=== PATIENT | female | born 1955 | race Caucasian/White ===

== ENCOUNTER → 2016-08-07 | Outpatient (CLI) | payer MEDICAID ==
[2016-08-07 17:55] LABS: Basophils # (A) 0.1 k/uL (0-0.2); Basophils % (A) 1 %; CH 28.3; Eosinophils # (A) 0.3 k/uL (0-0.7); Eosinophils % (A) 2 %; HCT 46.9 % (34.0-46.0); HDW 2.65; HGB 14.8 gm/dL (11.4-16.0); Luc # (Auto) 0.39; Luc % (Auto) 3; Lymphocytes # (A) 2.1 k/uL (1.0-4.8); Lymphocytes % (A) 15 %; MCH 28.1 pg (25.0-35.0); MCHC 31.6 g/dL (31.0-37.0); MCV 88.7 fL (80.0-100.0); Mean Platelet Volume 6.8; Monocytes # (A) 0.5 k/uL (0-1.0); Monocytes % (A) 4 %; Neutrophils # (A) 10.7 k/uL (1.3-7.7); Neutrophils % (A) 76 %; RBC 5.28 m/uL (3.80-5.40); RDW 14.1 % (11.5-15.5); WBC 14.1 k/uL (3.8-10.6); WBC (Perox) 13.44
== END | disposition home or self-care (01) ==
LOC: LABPAT 17:19
PROVIDERS: ATTEND Obstetrics & Gynecology
DX: Z01.812 Encounter for preprocedural laboratory examination (principal); Z01.810 Encounter for preprocedural cardiovascular examination
CPT/HCPCS: 85025; 93005

== ENCOUNTER 2016-08-21 09:26 | Day surgery (SDC) | payer MEDICAID ==
[2016-08-15 16:21] VITALS: BMI 40.3
--- NOTE | 2016-08-20 15:47 | P.HPOB ---
History of Present Illness H&P Date: 08/20/16 Chief Complaint: postmenopausal bleeding 61 year old G0 presents for D&C hysteroscopy due to postemenopausal bleeding and thickened endometrium on US. Review of Systems All systems: negative Constitutional: Denies chills, Denies fever Eyes: denies blurred vision, denies pain Ears, nose, mouth and throat: Denies headache, Denies sore throat Cardiovascular: Denies chest pain, Denies shortness of breath Respiratory: Denies cough Gastrointestinal: Denies abdominal pain, Denies diarrhea, Denies nausea, Denies vomiting Genitourinary: Denies dysuria, Denies hematuria Musculoskeletal: Denies myalgias Integumentary: Denies pruritus, Denies rash Neurological: Denies numbness, Denies weakness Psychiatric: Denies anxiety, Denies depression Endocrine: Denies fatigue, Denies weight change Past Medical History Past Medical History: GERD/Reflux, Hypertension, Osteoarthritis (OA) Additional Past Medical History / Comment(s): HIATAL HERNIA, PATIENT STATES HAD A RECENT UTI AND TREATED WITH MEDS, History of Any Multi-Drug Resistant Organisms: None Reported Past Surgical History: Tonsillectomy Additional Past Surgical History / Comment(s): LINDY CATARACT SURGERY, THYROID SURGERY , PARA THYROID , D&C X2 , NASAL SURGERY, EAR SURGERY -RIGHT AND LEFT Past Anesthesia/Blood Transfusion Reactions: Postoperative Nausea & Vomiting ( PONV) Past Psychological History: Anxiety Smoking Status: Former smoker Past Alcohol Use History: Rare Additional Past Alcohol Use History / Comment(s): STARTED SMOKING AT AGE 14 QUIT 2006 SMOKED 1PPD Past Drug Use History: None Reported - Past Family History Father Family Medical History: Cancer Medications and Allergies Home Medications Medication Instructions Recorded Confirmed Type ALPRAZolam [Xanax] 1 mg PO Q8HR 08/15/16 08/15/16 History Aspirin 81 mg PO DAILY 08/15/16 08/15/16 History Fexofenadine HCl [Ana Luisa Allergy] 180 mg PO DAILY 08/15/16 08/15/16 History Hydrocodone/Acetaminophen [Vicodin 1 tab PO HS 08/15/16 08/15/16 History Es 7.5-300 mg Tablet] Krill Oil 500 mg PO DAILY 08/15/16 08/15/16 History Losartan [Cozaar] 50 mg PO DAILY 08/15/16 08/15/16 History Montelukast Sodium [Singulair] 10 mg PO DAILY 08/15/16 08/15/16 History Multivitamins, Thera [Multivitamin 1 tab PO DAILY 08/15/16 08/15/16 History (formulary)] Naproxen Sodium [Aleve] 220 mg PO Q12HR 08/15/16 08/15/16 History Allergies Allergy/AdvReac Type Severity Reaction Status Date / Time cephalexin [From Keflex] Allergy Swelling-TO Verified 08/15/16 15:55 NGUE ciprofloxacin [From Cipro] Allergy Rash/Hives Verified 08/15/16 15:56 codeine AdvReac SEVERE Verified 08/15/16 15:56 CONSTIPATION Exam Osteopathic Statement: *. No significant issues noted on an osteopathic structural exam other than those noted in the History and Physical/Consult. HEart: RRR Lungs: CTAB Abdomen: soft, nontender Extremeties: neg sheyla's Assessment and Plan (1) Postmenopausal bleeding Status: Acute Plan: 1. D&C hysteroscopy
[~2016-08-21 09:26] MED LIST: DEXAMETHASONE SOD PHOSPHATE 10 MG/ML 1 ML VIAL IV ONE; HYDROmorphone 1 MG/ML 1 ML SYRINGE IVP PRN; MIDAZOLAM 2 MG/2 ML VIAL IV PRN; ONDANSETRON 4 MG/2 ML VIAL IVP ONE; Pre Op ABX Message 1 EACH MISC MISCELLANE ONE; SCOPOLAMINE 1.5MG/72HR PATCH TRANSDERM ONE
[2016-08-21] MEDS: LACTATED RINGERS 1,000 ML IV SCH ×2 (09:46→11:41)
[2016-08-21] MEDS ORDERED: LIDOCAINE 1% 20 ML VIAL (10MG/ML) FOR IV START SQ ONE (09:46)
[2016-08-21] MEDS ORDERED: PROPOFOL 10 MG/ML 20 ML VIAL IV ONE (10:23)
[2016-08-21] MEDS ORDERED: SUCCINYLCHOLINE CHLORIDE VIAL 200 MG/10 ML VIAL IV ONE (10:23)
[2016-08-21] MEDS ORDERED: MIDAZOLAM 2 MG/2 ML VIAL ONE (10:23)
[2016-08-21] MEDS ORDERED: fentaNYL (PF) 50 MCG/ML 2 ML AMP ONE (10:23)
[2016-08-21] MEDS ORDERED: LIDOCAINE 1% INJ 10MG/ML (20 ML MDV) ONE (10:23)
--- NOTE | 2016-08-21 10:46 | P.OP ---
Date of Procedure: 08/21/16 Preoperative Diagnosis: Postmenopausal bleeding Postoperative Diagnosis: Postmenopausal bleeding Procedure(s) Performed: D&C hysteroscopy Implants: Anesthesia: JAMIE Surgeon: Aydee Velazquez Estimated Blood Loss (ml): 2 IV fluids (ml): 400 Urine output (ml): 25 Pathology: other (Endometrial curettings) Condition: stable Disposition: PACU Indications for Procedure: Operative Findings: Several polyps in the endometrial cavity, both ostia seen. Description of Procedure: Patient is taken the operating room where general anesthesia was obtained without difficulty. She is prepped and draped in normal sterile fashion dorsal lithotomy position, legs placed in candycane stirrups. Bladder drained of all urine. Weighted speculum placed in the vagina the anterior lip the cervix was grasped with single-tooth tenaculum. Uterus was sounded to 8 cm. The cervix was dilated to #8 Hegar dilator to allow the hysteroscopy to pass. Hysteroscopy was performed, both ostia visualized and several polyps were noted. Sharp curet was gently used to obtain endometrial curettings and the polyp forceps are used to ensure all polyps had been removed. All instrument removed from the vagina. Patient to our procedure well, sponge and instrument counts were correct 2 and she was taken to recovery room in stable condition.
[2016-08-21 10:58] VITALS: TEMP 97.6
[2016-08-21 12:51] VITALS: BP 154/87; PULSE 80; RESP 20
== END 2016-08-21 13:05 | disposition home or self-care (01) ==
LOC: OR 09:26
PROVIDERS: ATTEND Obstetrics & Gynecology
DX: N84.0 Polyp of corpus uteri (principal); N85.01 Benign endometrial hyperplasia; N95.0 Postmenopausal bleeding; R93.8 Abnormal findings on diagnostic imaging of other specified body structures; K21.9 Gastro-esophageal reflux disease without esophagitis; I10 Essential (primary) hypertension; M19.90 Unspecified osteoarthritis, unspecified site; F41.9 Anxiety disorder, unspecified; J44.9 Chronic obstructive pulmonary disease, unspecified; Z87.891 Personal history of nicotine dependence; Z79.1 Long term (current) use of non-steroidal anti-inflammatories (NSAID); Z79.82 Long term (current) use of aspirin; Z79.899 Other long term (current) drug therapy; Z79.891 Long term (current) use of opiate analgesic; Z88.1 Allergy status to other antibiotic agents
CPT/HCPCS: 88305; 58558; J2250; J0330; J1100; J2405; J2001; J3010; J2704

== ENCOUNTER → 2016-10-19 | Outpatient (CLI) | payer MEDICAID ==
--- NOTE | 2016-10-22 10:57 | MM ---
Reason for exam: screening (asymptomatic). Last mammogram was performed 1 year and 2 months ago. History: Patient is postmenopausal and is nulliparous. Family history of breast cancer in aunt. Physical Findings: A clinical breast exam by your physician is recommended on an annual basis and results should be correlated with mammographic findings. MG Screening Mammo w CAD Bilateral CC and MLO view(s) were taken. Prior study comparison: August 31, 2015, mammogram. August 03, 2014, mammogram. The breast tissue is heterogeneously dense. This may lower the sensitivity of mammography. Finding: There are typically benign round calcifications in both breasts. There is a chronic nodularity in the right breast. Asymmetric breast tissue in the left upper aspect, stable. There is no discrete abnormality. ASSESSMENT: Benign, BI-RAD 2 RECOMMENDATION: Routine screening mammogram of both breasts in 1 year.
== END | disposition home or self-care (01) ==
LOC: RADMAMWWP 09:50
PROVIDERS: ATTEND Family Medicine
DX: Z12.31 Encounter for screening mammogram for malignant neoplasm of breast (principal)

== ENCOUNTER → 2017-10-25 | Outpatient (CLI) | payer MEDICARE ==
--- NOTE | 2017-10-30 10:54 | MM ---
Reason for exam: screening (asymptomatic). Last mammogram was performed 1 year ago. History: Patient is postmenopausal and is nulliparous. Family history of breast cancer in aunt. Physical Findings: A clinical breast exam by your physician is recommended on an annual basis and results should be correlated with mammographic findings. MG Screening Mammo W/o Cad Bilateral CC and MLO view(s) were taken. Technologist: Joelle Leahy RT (R)(M) Prior study comparison: October 19, 2016, bilateral MG screening mammo w CAD. August 31, 2015, mammogram. The breast tissue is heterogeneously dense. This may lower the sensitivity of mammography. Finding: There are typically benign round, regional, diffuse/scattered calcifications in both breasts. There is no discrete abnormality. ASSESSMENT: Benign, BI-RAD 2 RECOMMENDATION: Routine screening mammogram of both breasts in 1 year.
== END | disposition home or self-care (01) ==
LOC: RADMAMWWP 08:49
PROVIDERS: ATTEND Family Medicine
DX: Z12.31 Encounter for screening mammogram for malignant neoplasm of breast (principal)
CPT/HCPCS: 77067

== ENCOUNTER → 2018-12-22 | Outpatient (CLI) | payer MEDICARE ==
--- NOTE | 2018-12-22 19:56 | BD ---
EXAMINATION TYPE: Axial Bone Density DATE OF EXAM: 12/22/2018 COMPARISON: NONE CLINICAL HISTORY: 63-year-old female screening for osteoporosis Height: 61 IN Weight: 208 LBS FRAX RISK QUESTIONS: Secondary Osteoporosis: 3. Menopause before 45: YES AGE 33 RISK FACTORS HISTORY OF: Active: YES Diet low in dairy products/other sources of calcium: YES Postmenopausal woman: AGE 33 Hyperparathyroidism: YES MEDICATIONS: Additional Medications: LOSARTAN, MULTI VIT, KRILL OIL, B12, PROBIOTIC, ANNABELLE ASPIRIN EXAM MEASUREMENTS: Bone mineral densitometry was performed using the [employer] System. Bone mineral density as measured about the Lumbar spine is: ----- L1-L4(G/cm2): 1.201 T Score Values are as follows: ----- L2: 0.6 ----- L3: 0.4 ----- L4: -0.4 ----- L1-L4: 0.2 Bone mineral density BASELINE Bone mineral density about the R hip (g/cm2): 0.976 Bone mineral density about the L hip (g/cm2): 1.052 T Score values are as follows: -----R Neck: -0.4 -----L Neck: 0.1 -----R Total: 1.2 -----L Total: 1.3 Bone mineral density BASELINE IMPRESSION: Normal (Values between +1 and -1 indicate normal bone mass). Consider repeating this study in 5 year s or sooner if there is some new clinical indication. NOTE: T-SCORE=SD OF THE YOUNG ADULT MEAN.
--- NOTE | 2018-12-23 09:22 | MM ---
Reason for exam: screening (asymptomatic). Last mammogram was performed 1 year and 2 months ago. History: Patient is postmenopausal and is nulliparous. Family history of breast cancer in aunt. Physical Findings: A clinical breast exam by your physician is recommended on an annual basis and results should be correlated with mammographic findings. MG 3D Screening Mammo W/Cad Bilateral CC and MLO view(s) were taken. Prior study comparison: October 25, 2017, bilateral MG screening mammo w/o cad. October 19, 2016, bilateral MG screening mammo w CAD. The breast tissue is heterogeneously dense. This may lower the sensitivity of mammography. Benign appearing bilateral calcifications. No suspicious abnormality. No significant changes when compared with prior studies. ASSESSMENT: Benign, BI-RAD 2 RECOMMENDATION: Routine screening mammogram of both breasts in 1 year.
== END ==
LOC: RADMAMWWP 11:53
PROVIDERS: ATTEND Family Medicine
DX: Z12.31 Encounter for screening mammogram for malignant neoplasm of breast (principal); Z13.820 Encounter for screening for osteoporosis; Z78.0 Asymptomatic menopausal state
CPT/HCPCS: 77063; 77067; 77080

== ENCOUNTER 2019-04-16 09:53 | Day surgery (SDC) | payer MEDICARE ==
[2019-04-14 14:56] VITALS: BMI 34.4
--- NOTE | 2019-04-16 07:51 | P.GSHP ---
History of Present Illness H&P Date: 04/16/19 CHIEF COMPLAINT: GERD HISTORY OF PRESENT ILLNESS: The patient is a 63-year-old female who presents reports gastroesophageal reflux disease. Upper endoscopy was offered for further evaluation and management. PAST MEDICAL HISTORY: Please see list. PAST SURGICAL HISTORY: Please see list. MEDICATIONS: Please see list. ALLERGIES: Please see list. SOCIAL HISTORY: No illicit drug use FAMILY HISTORY: No reports of Crohn disease or ulcerative colitis. REVIEW OF ORGAN SYSTEMS: CONSTITUTIONAL: No reports of fevers or chills. GI: Denies any blood in stools or constipation. PHYSICAL EXAM: VITAL SIGNS: Stable GENERAL: Well-developed and pleasant in no acute distress. HEENT: No scleral icterus. Extraocular movements grossly intact. Moist buccal mucosa. NECK: Supple without lymphadenopathy. CHEST: Unlabored respirations. Equal bilateral excursions. CARDIOVASCULAR: Regular rate and rhythm. Distal 2+ pulses. ABDOMEN: Soft, nondistended. MUSCULOSKELETAL: No clubbing, cyanosis, or edema. ASSESSMENT: 1. Gastroesophageal reflux disease PLAN: 1. Recommend proceeding with an upper endoscopy Past Medical History Past Medical History: GERD/Reflux, Hypertension, Osteoarthritis (OA) Additional Past Medical History / Comment(s): HIATAL HERNIA, LOW HEMOGLOBIN, POSITIVE COLOGARD History of Any Multi-Drug Resistant Organisms: None Reported Past Surgical History: Joint Replacement, Tonsillectomy Additional Past Surgical History / Comment(s): LINDY CATARACT SURGERY, THYROID SURGERY , PARA THYROID SX , D&C X2 , NASAL SURGERY, BILAT EAR SURGERY , COLONOSCOPY, LT TKA Past Anesthesia/Blood Transfusion Reactions: Postoperative Nausea & Vomiting (PONV) Smoking Status: Former smoker - Past Family History Father Family Medical History: Cancer Medications and Allergies Home Medications Medication Instructions Recorded Confirmed Type Fexofenadine HCl [Ana Luisa Allergy] 180 mg PO DAILY 08/15/16 04/14/19 History Losartan [Cozaar] 50 mg PO DAILY 08/15/16 04/14/19 History Multivitamins, Thera [Multivitamin 1 tab PO DAILY 08/15/16 04/14/19 History (formulary)] Cyclobenzaprine [Flexeril] 10 mg PO BID 04/14/19 04/14/19 History L.acidoph,Paracasei, B.lactis 1 each PO DAILY 04/14/19 04/14/19 History [Probiotic] Allergies Allergy/AdvReac Type Severity Reaction Status Date / Time cephalexin [From Keflex] Allergy Swelling-TO Verified 04/14/19 14:46 NGUE ciprofloxacin [From Cipro] Allergy Rash/Hives Verified 04/14/19 14:46 codeine AdvReac SEVERE Verified 04/14/19 14:46 CONSTIPATION
[~2019-04-16 09:53] MED LIST changes: -DEXAMETHASONE SOD PHOSPHATE 10 MG/ML 1 ML VIAL IV ONE; -HYDROmorphone 1 MG/ML 1 ML SYRINGE IVP PRN; +LACTATED RINGERS 1,000 ML IV SCH; -MIDAZOLAM 2 MG/2 ML VIAL IV PRN; -ONDANSETRON 4 MG/2 ML VIAL IVP ONE; -Pre Op ABX Message 1 EACH MISC MISCELLANE ONE; -SCOPOLAMINE 1.5MG/72HR PATCH TRANSDERM ONE
[2019-04-16 10:59] VITALS: TEMP 98.7
[2019-04-16] MEDS ORDERED: LIDOCAINE 1% 20 ML VIAL (10MG/ML) FOR IV START INTRADERMA ONE (11:03)
[2019-04-16] MEDS ORDERED: LIDOCAINE 1% INJ 10MG/ML (20 ML MDV) ONE (11:22)
[2019-04-16] MEDS ORDERED: PROPOFOL 10 MG/ML 20 ML VIAL IV ONE (11:22)
--- NOTE | 2019-04-16 11:40 | P.OP ---
Date of Procedure: 04/16/19 Description of Procedure: PREOPERATIVE DIAGNOSIS: Gastroesophageal reflux disease. Morbid obesity. POSTOPERATIVE DIAGNOSIS: Morbid obesity. Gastritis. Gastroesophageal reflux disease. OPERATION: Esophagogastroduodenoscopy with biopsies along antrum. SURGEON: Radha Rand MD ANESTHESIA: MAC. INDICATIONS: The patient is a 63-year-old female who presents with a history of reflux disease. Benefits and risks of the procedure were described. Informed consent was obtained. DESCRIPTION: The patient was brought into the endoscopy suite and laid in the left lateral decubitus position. An Olympus gastroscope was passed along the posterior oropharynx down to the distal esophagus where the squamocolumnar junction was encountered at 35 cm from the incisors. The stomach was entered and no bile reflux was found. Additional findings are listed below. Biopsies with cold forceps were obtained of the antrum. The first through third portion of the duodenum was examined and unremarkable. Retroflexion of the scope confirmed Hill grade 2 lower esophageal valve. The squamocolumnar junction demonstrated LA grade A erosive esophagitis. The stomach was desufflated. The patient tolerated the procedure well. FINDINGS: Squamocolumnar junction 35 cm from the incisors. Diaphragmatic hiatus at 35 cm. Hill grade 2 lower esophageal valve. LA grade A erosive esophagitis. No active duodenitis. Chronic gastritis RECOMMENDATIONS: Upper endoscopy as needed. Plan - Discharge Summary Discharge Rx Participant: No New Discharge Prescriptions: No Action Multivitamins, Thera [Multivitamin (formulary)] 1 tab PO DAILY Losartan [Cozaar] 50 mg PO DAILY Fexofenadine HCl [Ana Luisa Allergy] 180 mg PO DAILY Cyclobenzaprine [Flexeril] 10 mg PO BID L.acidoph,Paracasei, B.lactis [Probiotic] 1 each PO DAILY Discharge Medication List Fexofenadine HCl [Ana Luisa Allergy] 180 mg PO DAILY 08/15/16 [History] Losartan [Cozaar] 50 mg PO DAILY 08/15/16 [History] Multivitamins, Thera [Multivitamin (formulary)] 1 tab PO DAILY 08/15/16 [History] Cyclobenzaprine [Flexeril] 10 mg PO BID 04/14/19 [History] L.acidoph,Paracasei, B.lactis [Probiotic] 1 each PO DAILY 04/14/19 [History] Follow up Appointment(s)/Referral(s): Radha Rand MD [STAFF PHYSICIAN] - 05/05/19 Patient Instructions/Handouts: Gastritis (DC) Activity/Diet/Wound Care/Special Instructions: May resume Aleve Discharge Disposition: HOME SELF-CARE
[2019-04-16 12:15] VITALS: BP 114/68; PULSE 86; RESP 16
== END 2019-04-16 12:43 | disposition home or self-care (01) ==
LOC: ORWHC2ENDO 09:53
PROVIDERS: ATTEND Surgery Plastic and Reconstructive Surgery
DX: K29.50 Unspecified chronic gastritis without bleeding (principal); B96.81 Helicobacter pylori [H. pylori] as the cause of diseases classified elsewhere; K21.0 Gastro-esophageal reflux disease with esophagitis; K22.10 Ulcer of esophagus without bleeding; D64.9 Anemia, unspecified; I10 Essential (primary) hypertension; E66.01 Morbid (severe) obesity due to excess calories; M19.90 Unspecified osteoarthritis, unspecified site; Z88.1 Allergy status to other antibiotic agents; Z88.5 Allergy status to narcotic agent; Z87.891 Personal history of nicotine dependence; Z79.899 Other long term (current) drug therapy; Z87.19 Personal history of other diseases of the digestive system; Z90.89 Acquired absence of other organs; Z98.41 Cataract extraction status, right eye; Z98.42 Cataract extraction status, left eye; Z96.652 Presence of left artificial knee joint; Z80.9 Family history of malignant neoplasm, unspecified; Z68.36 Body mass index [BMI] 36.0-36.9, adult
CPT/HCPCS: 88305; 88342; 43239; J2001; J2704

== ENCOUNTER 2019-04-26 18:22 | Emergency (ER) | payer MEDICARE ==
[2019-04-26 19:41] VITALS: RESP 20; TEMP 98.9
[2019-04-26] MEDS ORDERED: SODIUM CHLORIDE 0.9% 1,000 ML IV STA (19:45)
[2019-04-26] MEDS ORDERED: ONDANSETRON 4 MG/2 ML VIAL IVP STA ×2 (19:45→22:14)
[2019-04-26 20:38] LABS: Basophils % (A) 0 %; Eosinophils % (A) 0 %; HCT 35.9 % (34.0-46.0); HGB 10.6 gm/dL (11.4-16.0); Hypochromasia Marked; Lymphocytes % (A) 6 %; MCH 20.8 pg (25.0-35.0); MCHC 29.6 g/dL (31.0-37.0); MCV 70.3 fL (80.0-100.0); Microcytosis Moderate; Monocytes # (A) 0.5 k/uL (0-1.0); Monocytes % (A) 3 %; Neutrophils # (A) 14.9 k/uL (1.3-7.7); Neutrophils % (A) 89 %; Platelet Count 346 k/uL (150-450); Poikilocytosis Slight; RBC 5.11 m/uL (3.80-5.40); RDW 15.7 % (11.5-15.5); WBC 16.7 k/uL (3.8-10.6)
[2019-04-26 20:46] LABS: ALT 17 U/L (4-34); AST 25 U/L (14-36); African American GFR (CKD) >90 (>60 ml/min/1.73 sqM); Albumin 4.5 g/dL (3.5-5.0); Alkaline Phosphatase 92 U/L (38-126); Anion Gap 8 mmol/L; Blood Urea Nitrogen 17 mg/dL (7-17); Calcium 9.2 mg/dL (8.4-10.2); Carbon Dioxide 26 mmol/L (22-30); Chloride 105 mmol/L (98-107); Glucose 120 mg/dL (74-99); Non-African American GFR(CKD) >90 (>60 ml/min/1.73 sqM); Potassium 4.4 mmol/L (3.5-5.1); Sodium 139 mmol/L (137-145); Total Bilirubin 0.4 mg/dL (0.2-1.3); Total Protein 7.8 g/dL (6.3-8.2)
--- NOTE | 2019-04-26 20:54 | ED ---
Nausea/Vomiting/Diarrhea HPI <Bernadette Chiang Zara - Last Filed: 04/26/19 23:28> - General Source: patient Mode of arrival: ambulatory Limitations: no limitations <Sharri Reilly - Last Filed: 05/01/19 23:13> - General Chief complaint: Nausea/Vomiting/Diarrhea Stated complaint: Vomiting Time Seen by Provider: 04/26/19 19:14 - History of Present Illness Initial comments: The patient is a 63-year-old female with past history of hypertension and reflux who presents to the emergency department with reported nausea and epigastric abdominal pain. She states the pain started this morning. She had an EGD performed by Dr. Rand on the . She was called and instructed to start 3 new medications because of the results of the EGD for which she was not told. The patient started taking the medications on Saturday and states that they seemed upset her stomach. Today she felt a lot of pain in her abdomen which caused her to have an episode of nonbilious, nonbloody vomiting. States that she is unable to hold down any water all day. Denies any sick contacts or recent travel. No additional new medications. Denies eating any tainted foods. Also admits to a right upper quadrant abdominal pain for which she has had for several months. She has been worked up for it in her primary care office. They provider her a muscle relaxer. There is no associated chest pain or shortness of breath. She denies dysuria, hematuria or difficulty voiding. Denies any diarrhea, constipation, melanotic stools or hematochezia. There are no alleviating, precipitating or modifying factors (Sharri Reilly) - Related Data Home Medications Medication Instructions Recorded Confirmed Fexofenadine HCl [Ana Luisa Allergy] 180 mg PO DAILY 08/15/16 05/01/19 Losartan [Cozaar] 50 mg PO DAILY 08/15/16 05/01/19 L.acidoph,Paracasei, B.lactis 1 each PO DAILY 04/14/19 04/29/19 [Probiotic] Previous Rx's Medication Instructions Recorded Clarithromycin [Biaxin] 500 mg PO Q12HR #28 tablet 04/22/19 Omeprazole 40 mg PO DAILY #90 capsule. 04/22/19 metroNIDAZOLE [Flagyl] 500 mg PO BID #28 tab 04/22/19 Hydrocodone/Acetaminophen [[place] 1 tab PO Q6HR PRN #12 tab 04/26/19 5-325] Ondansetron Odt [Zofran ODT] 4 mg PO Q8HR PRN #10 tab 04/26/19 Acetaminophen Tab [Tylenol Tab] 1,000 mg PO Q6HR PRN #30 tablet 05/01/19 Ibuprofen [Motrin] 600 mg PO Q8HR PRN #30 tab 05/01/19 Allergies Allergy/AdvReac Type Severity Reaction Status Date / Time cephalexin [From Keflex] Allergy Swelling-TO Verified 05/01/19 12:32 NGUE ciprofloxacin [From Cipro] Allergy Rash/Hives Verified 05/01/19 12:32 codeine AdvReac SEVERE Verified 05/01/19 12:32 CONSTIPATION Review of Systems ROS Other: All systems not noted in ROS Statement are negative. <Bernadette Chiang - Last Filed: 04/26/19 23:28> ROS Other: All systems not noted in ROS Statement are negative. <Sharri Reilly - Last Filed: 05/01/19 23:13> ROS Statement: Those systems with pertinent positive or pertinent negative responses have been documented in the HPI. Past Medical History Past Medical History: GERD/Reflux, Hypertension, Osteoarthritis (OA) Additional Past Medical History / Comment(s): HIATAL HERNIA, LOW HEMOGLOBIN, POSITIVE COLOGARD History of Any Multi-Drug Resistant Organisms: None Reported Past Surgical History: Joint Replacement, Tonsillectomy Additional Past Surgical History / Comment(s): LINDY CATARACT SURGERY, THYROID SURGERY , PARA THYROID SX , D&C X2 , NASAL SURGERY, BILAT EAR SURGERY , COLONOSCOPY, LT TKA Past Anesthesia/Blood Transfusion Reactions: Postoperative Nausea & Vomiting (PONV) Past Psychological History: Anxiety Smoking Status: Former smoker Past Alcohol Use History: None Reported Past Drug Use History: Marijuana - Past Family History Father Family Medical History: Cancer <Sharri Reilly - Last Filed: 05/01/19 23:13> General Exam Limitations: no limitations General appearance: alert, in no apparent distress Head exam: Present: atraumatic, normocephalic, normal inspection Eye exam: Present: normal appearance, PERRL, EOMI. Absent: scleral icterus, conjunctival injection, periorbital swelling ENT exam: Present: normal exam, mucous membranes moist Neck exam: Present: normal inspection. Absent: tenderness, meningismus, lymphadenopathy Respiratory exam: Present: normal lung sounds bilaterally. Absent: respiratory distress, wheezes, rales, rhonchi, stridor Cardiovascular Exam: Present: regular rate, normal rhythm, normal heart sounds. Absent: systolic murmur, diastolic murmur, rubs, gallop, clicks GI/Abdominal exam: Present: soft, tenderness (RUQ), normal bowel sounds. Absent: distended, guarding, rebound, rigid Extremities exam: Present: normal inspection, full ROM, normal capillary refill. Absent: tenderness, pedal edema, joint swelling, calf tenderness Back exam: Present: normal inspection Neurological exam: Present: alert, oriented X3, CN II-XII intact Psychiatric exam: Present: normal affect, normal mood Skin exam: Present: warm, dry, intact, normal color. Absent: rash <Sharri Reilly - Last Filed: 05/01/19 23:13> Course Vital Signs 04/26/19 04/26/19 04/26/19 18:29 19:39 22:00 Temperature 99.0 F 98.9 F Pulse Rate 90 89 90 Respiratory 18 20 20 Rate Blood Pressure 155/81 137/90 155/90 O2 Sat by Pulse 98 97 97 Oximetry 04/27/19 00:05 Temperature Pulse Rate 94 Respiratory 20 Rate Blood Pressure 147/89 O2 Sat by Pulse 95 Oximetry Medical Decision Making - Lab Data Result diagrams: 04/26/19 20:17 04/26/19 20:17 <Bernadette Chiang - Last Filed: 04/26/19 23:28> - Lab Data Result diagrams: 04/26/19 20:17 04/26/19 20:17 <Sharri Reilly - Last Filed: 05/01/19 23:13> - Medical Decision Making Upon arrival the patient was placed into room 8. A thorough history and physical exam is performed. Peripheral IV was established. The patient was given a liter bolus of normal saline and 4 mg of Zofran. A complete laboratory studies. I did discuss completing imaging studies. The patient did agree to a collar ultrasound. Laboratory studies demonstrate a WBC of 16.7. Glucose is 120. Liver enzymes and alk phos are normal. A gallbladder ultrasound demonstrates multiple gallstones. I did reevaluate the patient she has had improvement in her symptoms. She is requesting a second dose of nausea medications. She has been given a cup of water and does hold it down. She'll be given a Zofran starter pack to go home. I also called additional prescription of Zofran in to the pharmacy. She is requesting something for the pain and therefore Ill provide her with a short course of [place] after she does sign an opiate start talking form. Currently awaiting urinalysis. The patient will be discharged home to follow-up with Dr. Rand. Return to the emergency room for any new worsening symptoms. Hold off on any medications provided to her by Dr. Rand's office until she is not vomiting. The patient remained in stable condition and was discharged home (Sharri Reilly) - Lab Data Lab Results 04/26/19 04/26/19 04/26/19 Range/Units 20:17 20:17 23:00 WBC 16.7 H (3.8-10.6) k/uL RBC 5.11 (3.80-5.40) m/uL Hgb 10.6 L (11.4-16.0) gm/dL Hct 35.9 (34.0-46.0) % MCV 70.3 L (80.0-100.0) fL MCH 20.8 L (25.0-35.0) pg MCHC 29.6 L (31.0-37.0) g/dL RDW 15.7 H (11.5-15.5) % Plt Count 346 (150-450) k/uL Neutrophils % 89 % Lymphocytes % 6 % Monocytes % 3 % Eosinophils % 0 % Basophils % 0 % Neutrophils # 14.9 H (1.3-7.7) k/uL Lymphocytes # 1.0 (1.0-4.8) k/uL Monocytes # 0.5 (0-1.0) k/uL Eosinophils # 0.0 (0-0.7) k/uL Basophils # 0.0 (0-0.2) k/uL Hypochromasia Marked Poikilocytosis Slight Microcytosis Moderate Sodium 139 (137-145) mmol/L Potassium 4.4 (3.5-5.1) mmol/L Chloride 105 (98-107) mmol/L Carbon Dioxide 26 (22-30) mmol/L Anion Gap 8 mmol/L BUN 17 (7-17) mg/dL Creatinine 0.55 (0.52-1.04) mg/dL Est GFR (CKD-EPI)AfAm >90 (>60 ml/min/1.73 sqM) Est GFR (CKD-EPI)NonAf >90 (>60 ml/min/1.73 sqM) Glucose 120 H (74-99) mg/dL Calcium 9.2 (8.4-10.2) mg/dL Total Bilirubin 0.4 (0.2-1.3) mg/dL AST 25 (14-36) U/L ALT 17 (4-34) U/L Alkaline Phosphatase 92 (38-126) U/L Total Protein 7.8 (6.3-8.2) g/dL Albumin 4.5 (3.5-5.0) g/dL Lipase 23 (23-300) U/L Urine Color Yellow Urine Appearance Clear (Clear) Urine pH 6.0 (5.0-8.0) Ur Specific [place] 1.019 (1.001-1.035) Urine Protein 1+ H (Negative) Urine Glucose (UA) Negative (Negative) Urine Ketones 1+ H (Negative) Urine Blood Negative (Negative) Urine Nitrite Negative (Negative) Urine Bilirubin Negative (Negative) Urine Urobilinogen <2.0 (<2.0) mg/dL Ur Leukocyte Esterase Negative (Negative) Urine RBC 2 (0-5) /hpf Urine WBC 4 (0-5) /hpf Ur Squamous Epith Cells 2 (0-4) /hpf Urine Bacteria Occasional H (None) /hpf Urine Mucus Rare H (None) /hpf - EKG Data EKG Comments: EKG demonstrates a normal sinus rhythm with ventricular rate of 91. WV interval 152. QRS 80. QTC of 437. No acute ST segment elevations or depressions concerning for ischemic changes. Q waves in lead 3. (Sharri Reilly) Disposition <Bernadette Chiang - Last Filed: 04/26/19 23:28> Is patient prescribed a controlled substance at d/c from ED?: Yes When asked, does pt state using other controlled substances?: No If prescribed controlled substance>3 days was MAPS reviewed?: Prescribed <3 Days If opioid is for acute pain is fill amount 7 days or less?: Yes If Rx opioid, was Start Talking consent form obtained?: Yes Time of Disposition: 22:42 <Sharri Reilly - Last Filed: 05/01/19 23:13> Clinical Impression: Leukocytosis, Gallstones, Epigastric abdominal pain, Vomiting, Dehydration Disposition: HOME SELF-CARE Condition: Stable Instructions (If sedation given, give patient instructions): Gallstones (ED), Acute Nausea and Vomiting (ED) Prescriptions: Hydrocodone/Acetaminophen [[place] 5-325] 1 tab PO Q6HR PRN #12 tab PRN Reason: Pain Ondansetron Odt [Zofran ODT] 4 mg PO Q8HR PRN #10 tab PRN Reason: Nausea Referrals: Jose L Gunn MD [Primary Care Provider] - 1-2 days Radha Rand MD [STAFF PHYSICIAN] - 1-2 days
--- NOTE | 2019-04-26 21:45 | US ---
EXAMINATION TYPE: US gallbladder DATE OF EXAM: 04/26/2019 COMPARISON: NONE CLINICAL HISTORY: RUQ pain. Pain and vomiting. EXAM MEASUREMENTS: Liver Length: 16.7 cm Gallbladder Wall: .2 cm CBD: .6 cm Right Kidney: 10.4 x 3.9 x 4.1 cm Pancreas: Obscured by bowel gas Liver: Increased attenuation Gallbladder: Stones seen. Evidence for sonographic [place]'s sign: No CBD: wnl Right Kidney: wnl IMPRESSION: There are multiple gallstones. No dilated ducts. No focal liver defect.
[2019-04-26] MEDS ORDERED: ONDANSETRON 4 MG ODT STARTER PACK 2 TAB BTL PO STA (22:37)
[2019-04-26 23:19] LABS: Appearance,Urine Clear (Clear); Bilirubin,Urine Negative (Negative); Blood,Urine Negative (Negative); Color,Urine Yellow; Glucose,Urine (UA) Negative (Negative); Ketones,Urine 1+ (Negative); Leukocyte Esterase,Urine Negative (Negative); Mucus,Urine Rare /hpf; Nitrite,Urine Negative (Negative); Protein,Urine 1+ (Negative); RBC,Urine 2 /hpf (0-5); Specific Gravity,Urine 1.019 (1.001-1.035); Squamous Epithelial Cell,Urine 2 /hpf (0-4); Urobilinogen,Urine <2.0 mg/dL (<2.0); WBC,Urine 4 /hpf (0-5)
[2019-04-26 23:20] LABS: Bacteria,Urine Occasional /hpf
[2019-04-27 00:17] VITALS: BP 147/89; PULSE 94
== END 2019-04-27 00:05 | disposition home or self-care (01) ==
LOC: EC 18:22
DX: K80.20 Calculus of gallbladder without cholecystitis without obstruction (principal); E86.0 Dehydration; D72.829 Elevated white blood cell count, unspecified; I10 Essential (primary) hypertension; Z79.899 Other long term (current) drug therapy; Z88.1 Allergy status to other antibiotic agents; Z88.5 Allergy status to narcotic agent; Z96.652 Presence of left artificial knee joint; Z87.891 Personal history of nicotine dependence
CPT/HCPCS: 96374; 96376; 96361; 99284; 36415; 93005; 80053; 83690; 85025; 81001; 76705; J2405; S0119

== ENCOUNTER 2019-05-01 12:08 | Day surgery (SDC) | payer MEDICARE ==
[2019-04-29 14:10] VITALS: BMI 34.3
--- NOTE | 2019-04-30 21:42 | P.GSHP ---
History of Present Illness H&P Date: 05/01/19 CHIEF COMPLAINT: Cholecystitis HISTORY OF PRESENT ILLNESS: The patient is a 63-year-old female who presents with history of epigastric including right upper quadrant abdominal pain. She underwent diagnostic studies for her gallbladder. Separately her clinical picture was consistent with cholecystitis. Now she presents for surgical intervention. PAST MEDICAL HISTORY: Please see list PAST SURGICAL HISTORY: Please see list MEDICATIONS: Please see list ALLERGIES: Please see list SOCIAL HISTORY: Please see list FAMILY HISTORY: Please see list REVIEW OF ORGAN SYSTEMS: CONSTITUTIONAL: No reports of fevers or chills. HEENT: Denies any troubles with the vision or hearing. SKIN: No skin cancer. PHYSICAL EXAM: VITAL SIGNS: Afebrile vital signs stable GENERAL: Well-developed pleasant in no acute distress. HEENT: No scleral icterus. Extraocular movements grossly intact. Moist buccal mucosa. NECK: Supple without lymphadenopathy. CHEST: Unlabored respirations. Equal bilateral excursions. CARDIOVASCULAR: Regular rate regular rhythm rhythm. Distal 2+ pulses. ABDOMEN: Soft, nondistended. Tender along the epigastrium and right upper quadrant. MUSCULOSKELETAL: No clubbing, cyanosis, or edema. NEURO: Cranial nerves II to XII within normal limits. No focal or lateralizing signs. PSYCH: Alert and oriented to person, place and time. SKIN: Well-perfused good skin turgor. ASSESSMENT: 1. Epigastric and right upper quadrant abdominal pain 2. Chronic cholecystitis 3. Symptomatic gallstones. PLAN: 1. Will need a robotic cholecystectomy possible open. Benefits and risks were described. 2. Heparin for DVT prophylaxis 5000 units. 3. Antibiotic prophylaxis. Past Medical History Past Medical History: GERD/Reflux, Hypertension, Osteoarthritis (OA), Skin Disorder, Thyroid Disorder Additional Past Medical History / Comment(s): HIATAL HERNIA, LOW HEMOGLOBIN, POSITIVE COLOGARD, varicose veins, gallstones, diverticulosis, psoriasis, H Plyori dx 04/2019, History of Any Multi-Drug Resistant Organisms: None Reported Past Surgical History: Ear Surgery, Joint Replacement, Tonsillectomy Additional Past Surgical History / Comment(s): LINDY CATARACT SURGERY, nodule removed from thyroid and parathyroid removed , D&C X2, deviated septum surgeries, BILAT EAR SURGERY(tumor removed from rt ear) , COLONOSCOPY, LT knee replacement Past Anesthesia/Blood Transfusion Reactions: Motion Sickness Smoking Status: Former smoker - Past Family History Father Family Medical History: Cancer Additional Family Medical History / Comment(s): mult myeloma Brother(s) Family Medical History: Cancer Additional Family Medical History / Comment(s): throat Medications and Allergies Home Medications Medication Instructions Recorded Confirmed Type Fexofenadine HCl [Ana Luisa Allergy] 180 mg PO DAILY 08/15/16 04/29/19 History Losartan [Cozaar] 50 mg PO DAILY 08/15/16 04/29/19 History Multivitamins, Thera [Multivitamin 1 tab PO DAILY 08/15/16 04/29/19 History (formulary)] L.acidoph,Paracasei, B.lactis 1 each PO DAILY 04/14/19 04/29/19 History [Probiotic] Clarithromycin [Biaxin] 500 mg PO Q12HR #28 tablet 04/22/19 04/29/19 Rx Omeprazole 40 mg PO DAILY #90 capsule. 04/22/19 04/29/19 Rx metroNIDAZOLE [Flagyl] 500 mg PO BID #28 tab 04/22/19 04/29/19 Rx Hydrocodone/Acetaminophen [[place] 1 tab PO Q6HR PRN #12 tab 04/26/19 04/29/19 Rx 5-325] Ondansetron Odt [Zofran Odt] 4 mg PO Q8HR PRN #10 tab 04/26/19 04/29/19 Rx Allergies Allergy/AdvReac Type Severity Reaction Status Date / Time cephalexin [From Keflex] Allergy Swelling-TO Verified 04/29/19 13:52 NGUE ciprofloxacin [From Cipro] Allergy Rash/Hives Verified 04/29/19 13:52 codeine AdvReac SEVERE Verified 04/29/19 13:52 CONSTIPATION
[~2019-05-01 12:08] MED LIST changes: +ACETAMINOPHEN TAB 500 MG TAB PO STA; +DEXAMETHASONE SOD PHOSPHATE 10 MG/ML 1 ML VIAL IV ONE; +GABAPENTIN 300 MG CAP PO STA; +GENTAMICIN 340 MG in SODIUM CHLORIDE 0.9% 100 ML IVPB ONE; +HEPARIN SODIUM,PORCINE 5,000 UNIT/ML 1 ML VIAL SQ ONE; +INDOCYANINE GREEN 25 MG VIAL IV STA; +MIDAZOLAM 2 MG/2 ML VIAL IV PRN; +ONDANSETRON 4 MG/2 ML VIAL IVP ONE; +SCOPOLAMINE 1.5MG/72HR PATCH TRANSDERM ONE; +SCOPOLAMINE 1.5MG/72HR PATCH TRANSDERM STA; +fentaNYL (PF) 50 MCG/ML 2 ML AMP IV PRN
[2019-05-01 13:05] LABS: ALT 18 U/L (4-34); AST 26 U/L (14-36); African American GFR (CKD) >90 (>60 ml/min/1.73 sqM); Alkaline Phosphatase 80 U/L (38-126); Anion Gap 9 mmol/L; Blood Urea Nitrogen 20 mg/dL (7-17); Calcium 8.9 mg/dL (8.4-10.2); Carbon Dioxide 27 mmol/L (22-30); Chloride 102 mmol/L (98-107); Glucose 97 mg/dL (74-99); Non-African American GFR(CKD) >90 (>60 ml/min/1.73 sqM); Sodium 138 mmol/L (137-145); Total Bilirubin 0.5 mg/dL (0.2-1.3); Total Protein 7.1 g/dL (6.3-8.2)
[2019-05-01 13:24] LABS: Anisocytosis Slight; Basophils # (A) 0.1 k/uL (0-0.2); Basophils % (A) 1 %; Eosinophils # (A) 0.2 k/uL (0-0.7); Eosinophils % (A) 2 %; HCT 32.9 % (34.0-46.0); HGB 9.5 gm/dL (11.4-16.0); Hypochromasia Marked; Lymphocytes # (A) 1.5 k/uL (1.0-4.8); Lymphocytes % (A) 15 %; MCH 20.4 pg (25.0-35.0); MCHC 28.9 g/dL (31.0-37.0); MCV 70.5 fL (80.0-100.0); Microcytosis Moderate; Monocytes # (A) 0.7 k/uL (0-1.0); Monocytes % (A) 7 %; Neutrophils # (A) 7.1 k/uL (1.3-7.7); Neutrophils % (A) 71 %; Platelet Count 295 k/uL (150-450); Poikilocytosis Slight; RBC 4.66 m/uL (3.80-5.40); RDW 16.5 % (11.5-15.5)
[2019-05-01 14:00] LABS: Hypersegmented Neutrophils Present
[2019-05-01 14:01] LABS: Ovalocytes Present
[2019-05-01] MEDS ORDERED: ROCURONIUM BROMIDE 10 MG/ML 10 ML VIAL IV ONE (15:20)
[2019-05-01] MEDS ORDERED: PROPOFOL 10 MG/ML 20 ML VIAL IV ONE (15:20)
[2019-05-01] MEDS ORDERED: SUCCINYLCHOLINE CHLORIDE 100 MG/5 ML SYR IV ONE (15:20)
[2019-05-01] MEDS ORDERED: LIDOCAINE 1% INJ 10MG/ML (20 ML MDV) ONE (15:20)
[2019-05-01] MEDS ORDERED: GLYCOPYRROLATE 0.2 MG/ML 2 ML VIAL ONE (15:20)
[2019-05-01] MEDS ORDERED: fentaNYL (PF) 50 MCG/ML 2 ML AMP ONE (15:20)
[2019-05-01] MEDS ORDERED: NEOSTIGMINE 1 MG/ML 10 ML VIAL ONE (15:20)
[2019-05-01] MEDS ORDERED: ePHEDrine SULFATE/0.9% NACL/PF 50 MG/5 ML SYRINGE IV ONE (15:20)
[2019-05-01] MEDS ORDERED: LIDOCAINE 2%-EPI 1:100,000 20 ML VIAL SQ ONE (15:43)
[2019-05-01] MEDS: CLINDAMYCIN 900 MG in DEXTROSE 5% IN WATER 50 ML IVPB ONE ×4 (15:45→15:55)
[2019-05-01] MEDS ORDERED: LACTATED RINGERS 1,000 ML IV ONE (16:17)
--- NOTE | 2019-05-01 16:28 | P.OP ---
Date of Procedure: 05/01/19 Description of Procedure: SURGEON: RADHA RAND MD PREOPERATIVE DIAGNOSES: 1. Right upper quadrant abdominal pain 2. Leukocytosis 3. Acute on chronic cholecystitis 4. Symptomatic gallstones 5. Hypertensive heart disease POSTOPERATIVE DIAGNOSES: 1. Right upper quadrant abdominal pain 2. Leukocytosis 3. Acute on chronic cholecystitis 4. Symptomatic gallstones 5. Hypertensive heart disease OPERATION: Robotic-assisted da Oscar Xi laparoscopic cholecystectomy, multiport with FIREFLY ESTIMATED BLOOD LOSS: 5 mL. SPECIMENS REMOVED: Gallbladder. COMPLICATIONS: None. OPERATIVE FINDINGS: 1. Chronic cholecystitis 2. Console time 23 minutes INDICATIONS: The patient is a 63-year-old female who presents with cholelcystitis. Surgical intervention with a laparoscopic cholecystectomy was described at length including injury to the biliary tree, bleeding, infection, need for further surgery. Informed consent was obtained. Robotic assisted laparoscopic approach was described. Benefits and risks of the procedure including but not limited to bleeding, infection, injury to the biliary tree was described. Informed consent was obtained. DESCRIPTION OF PROCEDURE: Patient was brought to the operating room, placed in supine position. After general induction, the abdomen had been prepped and draped in standard sterile fashion. The robotic da Oscar XI system was primed. After a timeout protocol was performed, the patient had been prepped and draped in standard sterile fashion. The patient was injected with indocyanine green. A 5 mm 0 degrees laparoscopic trocar entry was performed along the left upper quadrant. The abdomen insufflated to 15 mmHg pressure which was tolerated well. Diagnostic laparoscopy demonstrated no injury to bowel viscera or mesentery. The liver surface was unremarkable. Next, two 8 mm robotic ports were placed along the right upper abdomen. The camera 8-mm port was maintained along the epigastrium. Another 8 mm port was placed along the left upper abdominal wall after exchanging the 5 mm port. Please note that the ports were placed at least 10 to 15 cm away from the target anatomy of the gallbladder. The robot was docked along the left lateral abdomen. The patient was repositioned in reverse Trendelenburg position. Using a grasper for arm 3, a grasper for arm 4, including hook cautery for arm 1, the robotic system was docked and primed as described. Instruments were interchanged by the assistant broker including [place], scissors with cautery, Bovie cautery and clip appliers. I had sat at the console. The gallbladder fundus was retracted over the dome of the liver. Initial attention was brought to the infundibulum which was gently retracted in the inferior lateral approach. Using a grasper, the cystic duct including the cystic artery was carefully skeletonized. FIREFLY was used to identify the cystic artery and cystic structures. A dilated venous anomaly was identified along the hepatic bed medial to the cystic duct and undisturbed. A critical view of safety was obtained. Large PLASTIC clips were used throughout the entire case. Using a clip senior health consultant 2 clips were placed proximally, and 1 clip was placed between the infundibulum and cystic duct and divided using cautery. Next, the cystic artery was similarly clipped and cauterized. Electro-Bovie cautery was used to remove the gallbladder from the hepatic fossa. Hemostasis was checked and found to be adequate. The robot was undocked. I re-scrubbed into the case. Using a 10 mm Endo Catch bag via the left upper quadrant incision, the specimen was removed from the abdominal cavity. All pneumoperitoneum instruments were evacuated from the abdominal cavity. The incisions were reapproximated using 4-0 Monocryl in an interrupted subcuticular fashion. Fascial defects were less than 8 mm in size. Please note along the trocar sites, local anesthetic was placed as a field block prior to insertion of all instruments. Liquid glue was applied to the skin. At the end of the procedure needle, sponge, and instrument count had been verified correct by the tree trimming line technician. The patient was transferred to postanesthesia care unit in stable condition. Intraoperative films were shared with the patient's family who were very pleased with the level of care. Plan - Discharge Summary Discharge Rx Participant: Yes New Discharge Prescriptions: New Ibuprofen [Motrin] 600 mg PO Q8HR PRN #30 tab PRN Reason: Pain Acetaminophen Tab [Tylenol Tab] 1,000 mg PO Q6HR PRN #30 tablet Continue Losartan [Cozaar] 50 mg PO DAILY Fexofenadine HCl [Ana Luisa Allergy] 180 mg PO DAILY L.acidoph,Paracasei, B.lactis [Probiotic] 1 each PO DAILY Clarithromycin [Biaxin] 500 mg PO Q12HR #28 tablet metroNIDAZOLE [Flagyl] 500 mg PO BID #28 tab Omeprazole 40 mg PO DAILY #90 capsule. Hydrocodone/Acetaminophen [[place] 5-325] 1 tab PO Q6HR PRN #12 tab PRN Reason: Pain Ondansetron Odt [Zofran ODT] 4 mg PO Q8HR PRN #10 tab PRN Reason: Nausea Discontinued Multivitamins, Thera [Multivitamin (formulary)] 1 tab PO DAILY Discharge Medication List Fexofenadine HCl [Ana Luisa Allergy] 180 mg PO DAILY 08/15/16 [History] Losartan [Cozaar] 50 mg PO DAILY 08/15/16 [History] L.acidoph,Paracasei, B.lactis [Probiotic] 1 each PO DAILY 04/14/19 [History] Clarithromycin [Biaxin] 500 mg PO Q12HR #28 tablet 04/22/19 [Rx] Omeprazole 40 mg PO DAILY #90 capsule. 04/22/19 [Rx] metroNIDAZOLE [Flagyl] 500 mg PO BID #28 tab 04/22/19 [Rx] Hydrocodone/Acetaminophen [[place] 5-325] 1 tab PO Q6HR PRN #12 tab 04/26/19 [Rx] Ondansetron Odt [Zofran ODT] 4 mg PO Q8HR PRN #10 tab 04/26/19 [Rx] Acetaminophen Tab [Tylenol Tab] 1,000 mg PO Q6HR PRN #30 tablet 05/01/19 [Rx] Ibuprofen [Motrin] 600 mg PO Q8HR PRN #30 tab 05/01/19 [Rx] Follow up Appointment(s)/Referral(s): Radha Rand MD [STAFF PHYSICIAN] - 05/05/19 Patient Instructions/Handouts: Laparoscopic Cholecystectomy (DC) Activity/Diet/Wound Care/Special Instructions: No lifting over 10 pounds in 2 weeks until May 15. May shower. No bath tub soaks for two weeks until May 15 Diet as tolerated. No driving while on narcotics. Use Tylenol and ibuprofen or Aleve scheduled for the next 24-48 hours for best pain relief. Use ice along incisions for the today to prevent swelling. Discharge Disposition: HOME SELF-CARE
[2019-05-01] MEDS ORDERED: ONDANSETRON 4 MG/2 ML VIAL IVP ONE (16:37)
[2019-05-01] MEDS ORDERED: METOCLOPRAMIDE 5 MG/ML 2 ML VIAL IVP ONE (16:45)
[2019-05-01] MEDS ORDERED: SCOPOLAMINE 1.5MG/72HR PATCH TRANSDERM ONE (16:46)
[2019-05-01 16:50] VITALS: TEMP 98.2
[2019-05-01] MEDS ORDERED: SIMETHICONE 80 MG CHEWABLE PO SCH (17:00)
[2019-05-01 17:19] VITALS: RESP 16
[2019-05-01 17:59] VITALS: BP 151/85; PULSE 94
== END 2019-05-01 18:39 | disposition home or self-care (01) ==
LOC: OR 12:08
PROVIDERS: ATTEND Surgery Plastic and Reconstructive Surgery
DX: K80.12 Calculus of gallbladder with acute and chronic cholecystitis without obstruction (principal); D72.829 Elevated white blood cell count, unspecified; I11.9 Hypertensive heart disease without heart failure; K21.9 Gastro-esophageal reflux disease without esophagitis; M19.90 Unspecified osteoarthritis, unspecified site; E07.9 Disorder of thyroid, unspecified; L40.9 Psoriasis, unspecified; I83.90 Asymptomatic varicose veins of unspecified lower extremity; Z90.89 Acquired absence of other organs; F41.9 Anxiety disorder, unspecified; Z98.890 Other specified postprocedural states; Z98.41 Cataract extraction status, right eye; Z98.42 Cataract extraction status, left eye; Z96.652 Presence of left artificial knee joint; Z87.891 Personal history of nicotine dependence; Z80.2 Family history of malignant neoplasm of other respiratory and intrathoracic organs; Z79.2 Long term (current) use of antibiotics; Z79.899 Other long term (current) drug therapy; Z88.1 Allergy status to other antibiotic agents; Z88.5 Allergy status to narcotic agent
CPT/HCPCS: 88304; 80053; 85025; 47562; J1644; J1100; J2710; J2765; J2405; J2001; J3010; J1580; J0330; J2704

== ENCOUNTER → 2020-01-20 | Outpatient (CLI) | payer MEDICARE ==
--- NOTE | 2020-01-25 13:31 | MM ---
Reason for exam: screening (asymptomatic). Last mammogram was performed 1 year and 1 month ago. History: Patient is postmenopausal and is nulliparous. Family history of breast cancer in aunt. Physical Findings: A clinical breast exam by your physician is recommended on an annual basis and results should be correlated with mammographic findings. MG 3D Screening Mammo W/Cad Bilateral CC and MLO view(s) were taken. Prior study comparison: December 22, 2018, bilateral MG 3d screening mammo w/cad. October 25, 2017, bilateral MG screening mammo w/o cad. The breast tissue is heterogeneously dense. This may lower the sensitivity of mammography. There are benign appearing round calcifications bilaterally. There is chronic nodularity in the left breast. There is no discrete abnormality. ASSESSMENT: Benign, BI-RAD 2 RECOMMENDATION: Routine screening mammogram of both breasts in 1 year.
== END | disposition home or self-care (01) ==
LOC: RADMAMWWP 10:44
PROVIDERS: ATTEND Nurse Practitioner Family
DX: Z12.39 Encounter for other screening for malignant neoplasm of breast (principal); Z12.31 Encounter for screening mammogram for malignant neoplasm of breast
CPT/HCPCS: 77063; 77067

== ENCOUNTER → 2021-04-10 | Outpatient (CLI) | payer MEDICARE ==
--- NOTE | 2021-04-10 10:55 | CTL ---
EXAMINATION TYPE: CT Low Dose Lung DATE OF EXAM ORDERED: 04/10/2021 HISTORY: care home tobacco use. Lung cancer screening CT DLP: [address] CTDI: 2.95 mGy Automated exposure control for dose reduction was used. SCREENING VISIT: Baseline COMPARISON: None TECHNIQUE: Low dose computed tomography scan was performed through the chest at 1 mm thick sections a nd reconstructed images in multiple planes at 1 mm and [address] DIAGNOSTIC QUALITY: Limited, but interpretable due to body habitus. FINDINGS: LUNG NODULES: Present, detailed below: There is 5 x 4 mm anterior left upper lung nodule axial image 125. There is 13mm focus of ground glass opacity left upper lobe sagittal image 94. LUNGS: COPD: Severity: Mild Fibrosis: Severity: None Lymph nodes: No greater than 1 cm. Other findings: None. RIGHT PLEURAL SPACE: Effusion: None Calcification: None Thickening: None Pneumothorax: None LEFT PLEURAL SPACE: Effusion: None Calcification: None Thickening: None Pneumothorax: None HEART: Heart Size: Normal. Calcification at level of mitral valve. Coronary Calcification: Moderate Pericardial Effusion: Normal OTHER FINDINGS: Upper abdomen: None Bony thorax: Scoliotic curvature and moderate multilevel spurring. Supraclavicular region: None. Other: None. IMPRESSION: Suboptimal study . Small focus of groundglass opacity is nonspecific. Small left upper bob ng nodule. CT LUNG RAD AND CT CHEST RECOMMENDATION: Lung-Rad 2 Benign Appearance or Behavior: Continue annual sc reening with LDCT in 12 months. S Modifier (other clinically significant findings): None
== END | disposition home or self-care (01) ==
LOC: RADCTMAIN 08:54
PROVIDERS: ATTEND Family Medicine
DX: Z12.2 Encounter for screening for malignant neoplasm of respiratory organs (principal); R91.1 Solitary pulmonary nodule; R91.8 Other nonspecific abnormal finding of lung field; Z87.891 Personal history of nicotine dependence
CPT/HCPCS: 71271

== ENCOUNTER → 2021-06-20 | Outpatient (CLI) | payer MEDICARE ==
[~2021-06-20] MED LIST changes: -ACETAMINOPHEN TAB 500 MG TAB PO STA; -DEXAMETHASONE SOD PHOSPHATE 10 MG/ML 1 ML VIAL IV ONE; +DOBUTamine DRIP for NUC MED 500 MG in DEXTROSE/WATER 1 250ML.BAG IV PRN; +DOBUTamine DRIP for NUC MED 500 MG/250 ML BAG IV ONE; -GABAPENTIN 300 MG CAP PO STA; -GENTAMICIN 340 MG in SODIUM CHLORIDE 0.9% 100 ML IVPB ONE; -HEPARIN SODIUM,PORCINE 5,000 UNIT/ML 1 ML VIAL SQ ONE; -INDOCYANINE GREEN 25 MG VIAL IV STA; -LACTATED RINGERS 1,000 ML IV SCH; -MIDAZOLAM 2 MG/2 ML VIAL IV PRN; -ONDANSETRON 4 MG/2 ML VIAL IVP ONE; -SCOPOLAMINE 1.5MG/72HR PATCH TRANSDERM ONE; -SCOPOLAMINE 1.5MG/72HR PATCH TRANSDERM STA; -fentaNYL (PF) 50 MCG/ML 2 ML AMP IV PRN
--- NOTE | 2021-06-20 15:00 | ECHOS ---
STRESS ECHOCARDIOGRAM INDICATIONS: Coronary artery disease. BASELINE HEART RATE: 85 BASELINE BLOOD PRESSURE: 132/75 MAXIMUM HEART RATE: 133 MAXIMUM BLOOD PRESSURE: 170/84 85% MPHR: 130 100% MPHR: 153 METS: NA MAXIMUM STAGE REACHED: TOTAL EXERCISE TIME: 7:15 CLINICAL INFORMATION: Baseline EKG shows sinus rhythm, normal axis, normal intervals. Patient was given intravenous dobutamine over a period of 7 minutes as per protocol, achieving 87% of predicted maximal heart rate, without chest pain or diagnostic ST-segment depression. Baseline echo shows normal left ventricular size, wall motion, systolic function. Post dobutamine infusion there is normal hyperdynamic response of all segments of myocardium noted. Endocardial visualization was enhanced using Definity contrast. CONCLUSIONS: 1. Negative stress test by EKG criteria. 2. Negative dobutamine stress echocardiogram. MMODL / IJN: [id number] /
== END | disposition home or self-care (01) ==
LOC: RADNMMAIN 08:58
PROVIDERS: ATTEND Family Medicine
DX: I25.10 Atherosclerotic heart disease of native coronary artery without angina pectoris (principal)
CPT/HCPCS: 93351; J1250

== ENCOUNTER → 2021-08-04 | Outpatient (CLI) | payer MEDICARE ==
[2021-08-04 13:24] LABS: Partial Thromboplastin Time 24.8 sec (22.0-30.0)
[2021-08-04 19:15] LABS: HCT 45.1 % (37.2-46.3); HGB 14.1 g/dL (12.0-15.0); MCH 27.2 pg (27.0-32.0); MCHC 31.3 g/dL (32.0-37.0); MCV 86.9 fL (80.0-97.0); Mean Platelet Volume 10.8 fL (9.5-12.2); NRBC Per 100 WBC 0 /100 WBCS (0.0-0.0); Platelet Count 283 X 10*3/uL (140-440); RBC 5.19 X 10*6/uL (4.10-5.20); RDW 14.6 % (11.5-14.5); WBC 11.58 X 10*3/uL (4.50-10.00)
[2021-08-04 19:36] LABS: Appearance,Urine Clear (Clear); Bilirubin,Urine Negative (Negative); Blood,Urine Negative (Negative); Color,Urine Yellow (Yellow); Ketones,Urine Negative (Negative); Nitrite,Urine Negative (Negative); PH, Urine 7.5 (5.0-8.0); Specific Gravity,Urine 1.012 (1.001-1.030); Urobilinogen,Urine 0.2 (0.2,1.0)
[2021-08-04 19:38] LABS: African American GFR (CKD) 103.2 (60.0-200.0); Albumin 4.4 g/dL (3.8-4.9); Albumin/Globulin Ratio 1.29 (1.60-3.17); Anion Gap 10.3 mmol/L (10.00-18.00); BUN/Creat Ratio 28.57 Ratio (12.00-20.00); Calcium 9.5 mg/dL (8.7-10.3); Carbon Dioxide 27.7 mmol/L (20.0-27.5); Globulin 3.4 g/dL (1.6-3.3); Potassium 4.5 mmol/L (3.5-5.5); Total Bilirubin 0.3 mg/dL (0.30-1.20); Total Protein 7.8 g/dL (6.2-8.2)
[2021-08-04 21:36] LABS: INR 0.9 (<1.2)
== END | disposition home or self-care (01) ==
LOC: LABPAT 12:16
PROVIDERS: ATTEND Orthopaedic Surgery
DX: Z01.812 Encounter for preprocedural laboratory examination (principal)
CPT/HCPCS: 36415; 80053; 81003; 85027; 85610; 85730; 87070; 93005

== ENCOUNTER → 2022-04-23 | Outpatient (CLI) | payer MEDICARE ==
--- NOTE | 2022-04-24 08:42 | MM ---
Reason for Exam: Screening (asymptomatic). Last screening mammogram was performed 12 month(s) ago. Patient History: Menarche at age 11. Patient has no children. Postmenopausal. Paternal aunt had breast cancer, age 60. Risk Values: Anahi 5 year model risk: 1.9%. NCI Lifetime model risk: 6.2%. Prior Study Comparison: 12/22/2018 Bilateral Screening Mammogram, [facility]. 01/20/2020 Bilateral Screening Mammogram, [facility]. 04/04/2021 Bilateral Screening Mammogram, [facility]. Tissue Density: The breast tissue is heterogeneously dense. This may lower the sensitivity of mammography. Findings: Analyzed By CAD. New 8 mm nodular density upper outer left breast zone D/C. Ultrasound is recommended. No suspicious calcifications present. Overall Assessment: Incomplete: need additional imaging evaluation, BI-RAD 0 Management: Diagnostic Mammogram of the left breast. A clinical breast exam by your physician is recommended on an annual basis and results should be correlated with mammographic findings. Electronically signed and approved by: James Almeida M.D. Radiologis
== END | disposition home or self-care (01) ==
LOC: RADMAMWWP 10:04
PROVIDERS: ATTEND Family Medicine
DX: Z12.31 Encounter for screening mammogram for malignant neoplasm of breast (principal); Z78.0 Asymptomatic menopausal state; Z80.3 Family history of malignant neoplasm of breast
CPT/HCPCS: 77063; 77067

== ENCOUNTER → 2022-05-02 | Outpatient (CLI) | payer MEDICARE ==
--- NOTE | 2022-05-02 10:56 | MM ---
Reason for Exam: Additional evaluation requested from abnormal screening. Last screening mammogram was performed less than 1 month ago. Patient History: Menarche at age 11. Patient has no children. Postmenopausal. Paternal aunt had breast cancer, age 60. Risk Values: Anahi 5 year model risk: 1.9%. NCI Lifetime model risk: 6.2%. Prior Study Comparison: 10/19/2016 Bilateral Screening Mammogram, [facility]. 10/25/2017 Bilateral Screening Mammogram, [facility]. 12/22/2018 Bilateral Screening Mammogram, [facility]. 01/20/2020 Bilateral Screening Mammogram, [facility]. 04/04/2021 Bilateral Screening Mammogram, [facility]. 04/23/2022 Bilateral MG 3D screening mammo w/cad, [facility]. Tissue Density: Left: The breast tissue is heterogeneously dense. This may lower the sensitivity of mammography. Findings: Analyzed By CAD. Persistent nodular density upper outer left breast 18 cm from the nipple measuring 9 mm. Ultrasound is recommended. Overall Assessment: Incomplete: need additional imaging evaluation, BI-RAD 0 Management: Diagnostic Breast Ultrasound of the left breast. A clinical breast exam by your physician is recommended on an annual basis and results should be correlated with mammographic findings. This exam should not preclude additional follow-up of suspicious palpable abnormalities. Results were given to the patient verbally at the time of exam. Electronically signed and approved by: James Almeida M.D. Radiologis
--- NOTE | 2022-05-02 11:36 | USB ---
Patient History: Menarche at age 11. Patient has no children. Postmenopausal. Paternal aunt had breast cancer, age 60. Risk Values: Anahi 5 year model risk: 1.9%. NCI Lifetime model risk: 6.2%. Prior Study Comparison: 01/20/2020 Bilateral Screening Mammogram, [facility]. 04/04/2021 Bilateral Screening Mammogram, [facility]. 04/23/2022 Bilateral MG 3D screening mammo w/cad, [facility]. Findings: The upper outer quadrant of the left breast, the axilla of the left breast and the retroareolar of the left breast were scanned. Lymph node noted at the 1:00 position. No solid or cystic mass seen. Overall Assessment: Probably benign, BI-RAD 3 Management: Diagnostic Mammogram of the left breast in 6 months. A clinical breast exam by your physician is recommended on an annual basis and results should be correlated with mammographic findings. This exam should not preclude additional follow-up of suspicious palpable abnormalities. Results were given to the patient verbally at the time of exam. Electronically signed and approved by: James Almeida M.D. Radiologis
== END | disposition home or self-care (01) ==
LOC: RADMAMWWP 10:12
PROVIDERS: ATTEND Family Medicine
DX: R92.8 Other abnormal and inconclusive findings on diagnostic imaging of breast (principal); Z78.0 Asymptomatic menopausal state; Z80.3 Family history of malignant neoplasm of breast
CPT/HCPCS: 77065; 76642; G0279; 77061

== ENCOUNTER → 2022-06-27 | Outpatient (CLI) | payer MEDICARE ==
--- NOTE | 2022-06-27 10:02 | CTL ---
EXAMINATION TYPE: CT Low Dose Lung DATE OF EXAM: 06/27/2022 9:24 AM CLINICAL INDICATION:Female, 66 years old with history of Z87.891 PERSONAL HISTORY OF NICOTINE DEPENDE NCE; Personal history of tobacco use , history of tobacco use. COMPARISON: 04/10/2021 TECHNIQUE: Multiple axial non-contrast scans were obtained from approximately the lung apices through the upper abdomen. Coronal and sagittal reformatted images were obtained. Low dose technique was uti lized. CT DLP: 85.8 mGycm, Automated exposure control for dose reduction was used. CT Contrast: Contrast used: None Oral contrast used: None FINDINGS: ======== Lack of intravenous contrast and low dose technique limits the evaluation of the vascular and soft ti ssue structures. LUNGS: No evidence of pulmonary fibrosis. No evidence of focal consolidation, pneumothorax or pleural effusion. Nodules: RUL: * Groundglass nodule measuring 9 mm image 8 series 3 RML: None. RLL: * Groundglass 9 mm nodule image 132 * Groundglass 5 mm nodule image 116 * Groundglass 5 mm nodule image 127. ZUHAIR: * 15 x 12 mm groundglass opacity image 82 appears larger. * Groundglass 5 mm nodule image 69. * Mixed groundglass and solid nodule 8 mm image 97. LLL: None. AIRWAY: Patent and unremarkable. HEART: Size within normal limits. Moderate coronary artery cusp patient's. Aortic valve calcification s. MEDIASTINUM: No gross evidence of adenopathy. VASCULATURE: No aortic aneurysm. Mild to moderate atherosclerosis of the arterial vasculature. MUSCULOSKELETAL: No acute osseous abnormalities SOFT TISSUES/LYMPH NODES: Unremarkable. LOWER NECK: No significant findings. UPPER ABDOMEN: No significant findings. IMPRESSION: Scattered groundglass pulmonary nodules which are more prominent than prior which could be secondary to technique. The largest measuring up to [address] LUNG RAD AND CT CHEST RECOMMENDATION: Lung-Rad 2 Benign Appearance or Behavior: Continue annual sc reening with LDCT in 12 months. S Modifier (other clinically significant findings): None Recommend smoking cessation (if current smoker), or continuation of smoking cessation (if prior smoke r). Annual screening for lung cancer with low-dose computed tomography is recommended in adults ages 55 to 77 years who have a 30 pack-year smoking history and currently smoke or have quit within the pa st 15 years. Screening should be discontinued once a person has not smoked for 15 years or develops a health problem that substantially limits life expectancy or the ability or willingness to have curat katy lung surgery. Lung rads 2021 [email or web address]
== END | disposition home or self-care (01) ==
LOC: RADCTMAIN 08:44
PROVIDERS: ATTEND Family Medicine
DX: Z12.2 Encounter for screening for malignant neoplasm of respiratory organs (principal); R91.8 Other nonspecific abnormal finding of lung field; Z87.891 Personal history of nicotine dependence
CPT/HCPCS: 71271

== ENCOUNTER → 2022-06-27 | Outpatient (CLI) | payer MEDICARE ==
--- NOTE | 2022-06-27 15:38 | BD ---
EXAMINATION TYPE: Axial Bone Density DATE OF EXAM: 06/27/2022 CLINICAL HISTORY: 66 years old Female. ICD-10 CODE: Z78.0 ASYMPTOMATIC MENOPAUSAL STATE Height: 5 ft 4 in Weight: 190 FRAX RISK QUESTIONS: Alcohol (3 or more units per day): no Family History (Parent hip fracture): no Glucocorticoids (More than 3mos): no (Ex: prednisone, prednisolone, methylprednisolone, dexamethasone, and hydrocortisone). History of Fracture in Adulthood: no Secondary Osteoporosis: 1. Type 1 Diabetes: no 2. Hyperthyroidism: no 3. Menopause before 45: yes 4. Malnutrition: no 5. Chronic liver disease: no Rheumatoid Arthritis: no Current Tobacco Use: marijuana RISK FACTORS HISTORY OF: Surgery to Spine/Hip(right/left)/Wrist (right/left): rt hip replacement When: 2021 Family History of Osteoporosis: no Active: yes Diet low in dairy products/other sources of calcium: no Postmenopausal woman: yes Take estrogen and/or progesterone medications: no Lost more than 2 inches in height since high school: no Frequent falls: not now Poor Health: good Hyperparathyroidism: yes parathyroid removed Adrenal Insufficiency: no MEDICATIONS: Additional Medications: happy pms, omeprazole,lisinopril, lipitor Additional History: rt carpal tunnel surg mar 2022 EXAM MEASUREMENTS: Bone mineral densitometry was performed using the Daqi System. Bone mineral density as measured about the Lumbar spine is: ----- L1-L4(G/cm2): 1.244 T Score Values are as follows: ----- L1: 0.7 ----- L2: 0.5 ----- L3: 1.4 ----- L4: -0.2 ----- L1-L4: 0.5 Z Score Values are as follows: ----- L1: 1.6 ----- L2: 1.4 ----- L3: 2.3 ----- L4: 0.7 ----- L1-L4: 1.5 Bone mineral density has: increased 3.6 % since study of: 2019 Bone mineral density about the L hip (g/cm2): 1.008 T Score values are as follows: -----L Neck: -0.2 -----L Total: 0.8 Z Score values are as follows: -----L Neck: 1.0 -----L Total: 1.7 Bone mineral density has: decreased -5.6 % since study of: 2019 FRAX%s: The graph provided illustrates a 6.9 % chance for a major osteoporotic fx and a 0.4 % chance for the hips probability for fx in 10 years time. IMPRESSION: Normal (Values between +1 and -1 indicate normal bone mass). Consider repeating this study in 5 year s or sooner if there is some new clinical indication. NOTE: T-SCORE=SD OF THE YOUNG ADULT MEAN.
== END | disposition home or self-care (01) ==
LOC: RADBDWWP 09:01
PROVIDERS: ATTEND Family Medicine
DX: Z78.0 Asymptomatic menopausal state (principal)
CPT/HCPCS: 77080

== ENCOUNTER → 2022-10-31 | Outpatient (CLI) | payer MEDICARE ==
--- NOTE | 2022-10-31 11:19 | MM ---
Reason for Exam: Follow-up at short interval from prior study. Last screening mammogram was performed 7 month(s) ago. Patient History: Menarche at age 11. Patient has no children. Postmenopausal. Paternal aunt had breast cancer, age 60. Risk Values: Anahi 5 year model risk: 1.9%. NCI Lifetime model risk: 5.9%. Prior Study Comparison: 04/04/2021 Bilateral Screening Mammogram, [facility]. 04/23/2022 Bilateral MG 3D screening mammo w/cad, [facility]. 05/02/2022 Left MG 3D work up w/cad LT, [facility]. Tissue Density: Left: The breast tissue is heterogeneously dense. This may lower the sensitivity of mammography. Findings: Analyzed By CAD. No suspicious masses or group of calcifications within the left breast. Benign stable calcifications within the left breast. Stable chronic nodularity within the left breast. Overall Assessment: Benign, BI-RAD 2 Management: Screening Mammogram of both breasts in 6 months. A clinical breast exam by your physician is recommended on an annual basis and results should be correlated with mammographic findings. This exam should not preclude additional follow-up of suspicious palpable abnormalities. Results were given to the patient verbally at the time of exam. Note on Anahi scores and lifetime risk: 1. A Anahi score greater than 3% is considered moderate risk. If this is the case, consider specialist referral to assess eligibility for a risk reducing agent. If overall lifetime risk for the development of breast cancer is 20% or higher, the patient may qualify for future screening with alternating mammogram and breast MRI. Electronically signed and approved by: Nabeel Argueta D.O.
== END | disposition home or self-care (01) ==
LOC: RADUSWWP 10:42
PROVIDERS: ATTEND Family Medicine
DX: N63.20 Unspecified lump in the left breast, unspecified quadrant (principal); Z78.0 Asymptomatic menopausal state; Z80.3 Family history of malignant neoplasm of breast
CPT/HCPCS: 77065; G0279; 77061

== ENCOUNTER 2022-11-14 11:02 | Day surgery (SDC) | payer MEDICARE ==
[2022-11-09 11:36] VITALS: BMI 31.9
[~2022-11-14 11:02] MED LIST changes: -DOBUTamine DRIP for NUC MED 500 MG in DEXTROSE/WATER 1 250ML.BAG IV PRN; -DOBUTamine DRIP for NUC MED 500 MG/250 ML BAG IV ONE; +LACTATED RINGERS 1,000 ML IV SCH; +LIDOCAINE 1% (10MG/ML) FOR IV START INTRADERMA PRN
[2022-11-14] MEDS ORDERED: LACTATED RINGERS 1,000 ML IV ONE (11:40)
[2022-11-14 11:51] VITALS: RESP 16; TEMP 98.1
[2022-11-14] MEDS ORDERED: PROPOFOL 10 MG/ML 20 ML VIAL IV ONE (12:36)
--- NOTE | 2022-11-14 12:54 | P.PCN ---
Date of Procedure: 11/14/22 Procedure(s) Performed: BRIEF HISTORY: Patient is a 67-year-old pleasant white female scheduled for an elective colonoscopy as a part of screening for colon cancer. PROCEDURE PERFORMED: Colonoscopy with snare polypectomy. PREOPERATIVE DIAGNOSIS: Screening for colon cancer. IV sedation per Anesthesia. PROCEDURE: After informed consent was obtained, the patient, was brought into the endoscopy unit. IV sedation was administered by Anesthesia under continuous monitoring. Digital rectal examination was normal. Initially the Olympus CF-160 flexible video colonoscope was then inserted in the rectum, gradually advanced into the cecum without any difficulty. Careful examination was performed as the scope was gradually being withdrawn. Ileocecal valve and the appendiceal orifice were visualized and appeared normal. Prep was fair.. Mucosa of the cecum, a 5 mm polyp that was removed by snare polypectomy. Rest of the ascending colon, transverse colon, descending colon, sigmoid colon, and rectum appeared normal. Retroflexion was performed in the rectum and no lesions were seen. The patient tolerated the procedure well. IMPRESSION: 5 mm cecal polyp status post snare polypectomy Scattered diverticulosis RECOMMENDATIONS: Findings of this examination were discussed with the patient as well as her family. She was advised to follow with the biopsy results. He'll the biopsy results adenoma she can have a repeat colonoscopy in 5 years..
[2022-11-14] MEDS ORDERED: ONDANSETRON 4 MG/2 ML VIAL ONE (13:03)
[2022-11-14] MEDS ORDERED: ONDANSETRON 4 MG/2 ML VIAL IVP ONE (13:05)
[2022-11-14 13:13] VITALS: PULSE 78
[2022-11-14 13:15] VITALS: BP 184/85
== END 2022-11-14 13:35 | disposition home or self-care (01) ==
LOC: ORWHC2ENDO 11:02
PROVIDERS: ATTEND Internal Medicine Gastroenterology
DX: Z12.11 Encounter for screening for malignant neoplasm of colon (principal); K57.30 Diverticulosis of large intestine without perforation or abscess without bleeding; D12.0 Benign neoplasm of cecum; M19.90 Unspecified osteoarthritis, unspecified site; I10 Essential (primary) hypertension; E78.5 Hyperlipidemia, unspecified; K21.9 Gastro-esophageal reflux disease without esophagitis; Z79.1 Long term (current) use of non-steroidal anti-inflammatories (NSAID); Z79.899 Other long term (current) drug therapy; Z88.1 Allergy status to other antibiotic agents; Z88.5 Allergy status to narcotic agent
CPT/HCPCS: 45385 ×2; 88305; J2405; J2704; 44394

== ENCOUNTER → 2023-05-06 | Outpatient (CLI) | payer MEDICARE ==
--- NOTE | 2023-05-07 08:51 | MM ---
Reason for Exam: Screening (asymptomatic). Last mammogram was performed 1 year(s) and 1 month(s) ago. Patient History: Menarche at age 11. Patient has no children. Postmenopausal. Paternal aunt had breast cancer, age 60. Risk Values: Anahi 5 year model risk: 1.9%. NCI Lifetime model risk: 5.9%. Prior Study Comparison: 10/25/2017 Bilateral Screening Mammogram, [facility]. 12/22/2018 Bilateral Screening Mammogram, [facility]. 01/20/2020 Bilateral Screening Mammogram, [facility]. 04/04/2021 Bilateral Screening Mammogram, [facility]. 04/23/2022 Bilateral MG 3D screening mammo w/cad, [facility]. 05/02/2022 Left MG 3D work up w/cad LT, [facility]. 10/31/2022 Left MG 3D diag mammo w/cad LT, [facility]. Tissue Density: The breast tissue is heterogeneously dense. This may lower the sensitivity of mammography. Findings: Analyzed By CAD. There is no suspicious group of microcalcifications or new suspicious mass in either breast. Benign calcifications. Chronic nodularity bilaterally stable. Overall Assessment: Benign, BI-RAD 2 Management: Screening Mammogram of both breasts in 1 year. . Patient should continue monthly self-breast exams. A clinical breast exam by your physician is recommended on an annual basis. This exam should not preclude additional follow-up of suspicious palpable abnormalities. Note on Anahi scores and lifetime risk: 1. A Anahi score greater than 3% is considered moderate risk. If this is the case, consider specialist referral to assess eligibility for a risk reducing agent. 2. If overall lifetime risk for the development of breast cancer is 20% or higher, the patient may qualify for future screening with alternating mammogram and breast MRI. Electronically signed and approved by: Franco Christianson M.D. Radiologis
== END | disposition home or self-care (01) ==
LOC: RADMAMWWP 10:43
PROVIDERS: ATTEND Family Medicine
DX: Z12.31 Encounter for screening mammogram for malignant neoplasm of breast (principal); Z78.0 Asymptomatic menopausal state; Z80.3 Family history of malignant neoplasm of breast
CPT/HCPCS: 77063; 77067

== ENCOUNTER → 2023-07-29 | Outpatient (CLI) | payer MEDICARE ==
--- NOTE | 2023-08-01 12:57 | CTL ---
EXAMINATION TYPE: CT Low Dose Lung DATE OF EXAM ORDERED: 07/29/2023 HISTORY: . Lung cancer screening CT DLP: 85.[address] CTDI: 2.4 mGy Automated exposure control for dose reduction was used. SCREENING VISIT: r COMPARISON: TECHNIQUE: Low dose computed tomography scan was performed through the chest at 1 mm thick sections a nd reconstructed images in the coronal plane at [address] DIAGNOSTIC QUALITY: Satisfactory FINDINGS: LUNG NODULES: Present, detailed below: 1. There is a 0.2 cm peripheral anterior right upper lobe nodule. Series 4 image 82, stable. 2. Groundglass opacity may be in the upper left lung, series 4 image 91. Present previously. 3. There is an irregular density within the lingula measuring 1.0 x 0.9 cm. Series 4 image 119. This has enlarged from comparison. LUNGS: COPD: Severity: None Fibrosis: Severity: None Lymph nodes: None Other findings: None RIGHT PLEURAL SPACE: Effusion: None Calcification: None Thickening: None Pneumothorax: None LEFT PLEURAL SPACE: Effusion: None Calcification: None Thickening: None Pneumothorax: None HEART: Heart Size: Normal Coronary calcification: Moderate Pericardial effusion: None OTHER FINDINGS: Upper abdomen: Normal Bony thorax: Normal Supraclavicular region: Normal Other: Ascending thoracic aorta at the level the main pulmonary artery measures 3.5 cm. The main pul monary artery at the bifurcation measures 2.5 cm. IMPRESSION: 1. There is no enlarging nodule in the left midlung peripherally measuring 1 cm. Previous measurement 0.[address] for additional workup. FOLLOW UP CT CHEST RECOMMENDATION: PET/CT CT LUNG RAD: Lung-Rad 4A Suspicious
== END | disposition home or self-care (01) ==
LOC: RADCTMAIN 10:46
PROVIDERS: ATTEND Family Medicine
DX: Z12.2 Encounter for screening for malignant neoplasm of respiratory organs (principal); Z87.891 Personal history of nicotine dependence
CPT/HCPCS: 71271

== ENCOUNTER → 2023-08-19 | Outpatient (CLI) | payer MEDICARE ==
--- NOTE | 2023-08-27 08:11 | PE ---
EXAMINATION TYPE: PET CT fusion skull to thigh DATE OF EXAM: 08/19/2023 COMPARISON: Low-dose CT chest 07/29/2023 Prior PET/CT: None HISTORY: Abnormal findings on imaging TECHNIQUE: Following the intravenous administration of 12.84 mCi of F-18 FDG, whole body images are performed from the skull base to the midthigh. Images are reviewed on the computer in the coronal, a xial, and sagittal planes. Reconstructed rotating images are created on independent workstation and reviewed on the computer. A localization and attenuation correction CT is performed in conjunction with the PET scan. DLP: 428.56 mGycm SCAN: Initial Blood glucose: 105 mg/dL Average Mediastinum SUV: 1.81 Average Liver SUV: 2.48 FINDINGS: NECK: No abnormal uptake THORAX: No abnormal uptake Lung nodule within the lingula, image 98, has an SUV of 0.67. This corresponds to the low-dose CT [facility] st findings ABDOMEN: No abnormal uptake PELVIS: No abnormal uptake OSSEOUS STRUCTURES: No abnormal uptake LOCALIZATION CT: Diverticulosis without acute diverticulitis. COMPARISON: Lung nodule is identified. However, no suspicious uptake is evident at this time. IMPRESSION: 1. No suspicious uptake within the subtly enlarging lingular mass. Monitoring with CT in 6 months is recommended. If this should further change, repeat imaging could be performed.
== END | disposition home or self-care (01) ==
LOC: RADPETMAIN 14:34
PROVIDERS: ATTEND Family Medicine
DX: R93.89 Abnormal findings on diagnostic imaging of other specified body structures (principal)
CPT/HCPCS: 78815; A9552

== ENCOUNTER → 2024-03-19 | Outpatient (CLI) | payer MEDICARE ==
--- NOTE | 2024-03-19 11:37 | CT ---
EXAMINATION TYPE: CT chest wo con DATE OF EXAM: 03/19/2024 COMPARISON: 07/29/2023 CLINICAL INDICATION: Female, 68 years old with history of R91.1 PULMONARY NODULE; PHH, PULMONARY NODU LE TECHNIQUE: CT scan of the thorax is performed without IV contrast. CT DLP: [address] CTDI: mGy Automated exposure control for dose reduction was used. FINDINGS: There is a left upper lobe ill-defined nodule which is stable or slightly smaller in size compared to the prior study. Previously measured 9.0 x 9.6 mm and now measures 10 x 7.3 mm. There is a persisten t stable or slightly smaller groundglass opacity left upper lobe which previously measured approximat tereza 15.8 mm and now measures 14.6 mm. There are 2 stable small groundglass densities in the right low er lobe which are less than 6 mm in size. There is no new nodule. There is no new airspace consolidation or abnormal interstitial density. There is no pleural effusion or pneumothorax. The great vessels chest are normal and there is no cardiomegaly. No mediastinal, hilar or axillary adenopathy. There is a small hiatal hernia. Limited scanning through the upper abdomen reveals no other abnormality. The osseous structures are intact. IMPRESSION: 1. Stable left upper lobe pulmonary nodule and bilateral groundglass opacities as described above. 2. No acute cardiopulmonary disease. 3. small hiatal hernia 4. As a precautionary measure an additional 6 month follow-up CT thorax is recommended to confirm sta bility. [facility], , 03/19/2024 11:35 AM
== END | disposition home or self-care (01) ==
LOC: RADCTMAIN 10:34
PROVIDERS: ATTEND Family Medicine
DX: R91.1 Solitary pulmonary nodule (principal); K44.9 Diaphragmatic hernia without obstruction or gangrene
CPT/HCPCS: 71250

== ENCOUNTER → 2024-06-04 | Outpatient (CLI) | payer MEDICARE ==
--- NOTE | 2024-06-04 15:22 | MM ---
Reason for Exam: Screening (asymptomatic). Last mammogram was performed 1 year(s) and 1 month(s) ago. Patient History: Menarche at age 11. Patient has no children. Postmenopausal. Paternal aunt had breast cancer, age 60. Risk Values: Anahi 5 year model risk: 1.9%. NCI Lifetime model risk: 5.6%. Prior Study Comparison: 05/02/2022 Left MG 3D work up w/cad LT, [facility]. 10/31/2022 Left MG 3D diag mammo w/cad LT, [facility]. 05/06/2023 Bilateral MG 3D screening mammo w/cad, [facility]. Tissue Density: The breasts are heterogeneously dense, which may obscure small masses. Findings: Analyzed By CAD. Unchanged bilateral areas of asymmetric density. Scattered benign round and coarse calcifications redemonstrated particularly on the right. Chronic nodularity left breast and unchanged asymmetric density superior left MLO view. There is no suspicious group of microcalcifications or new suspicious mass in either breast. Overall Assessment: Benign, BI-RAD 2 Management: Screening Mammogram of both breasts in 1 year. Patient should continue monthly self-breast exams. A clinical breast exam by your physician is recommended on an annual basis. This exam should not preclude additional follow-up of suspicious palpable abnormalities. Note on Anahi scores and lifetime risk: 1. A Anahi score greater than 3% is considered moderate risk. If this is the case, consider specialist referral to assess eligibility for a risk reducing agent. 2. If overall lifetime risk for the development of breast cancer is 20% or higher, the patient may qualify for future screening with alternating mammogram and breast MRI. [facility], , 06/04/2024 3:19 PM. Electronically signed and approved by: Ethan Harris M.D. Radiologist
== END | disposition home or self-care (01) ==
LOC: RADMAMWWP 10:32
PROVIDERS: ATTEND Family Medicine
DX: Z12.31 Encounter for screening mammogram for malignant neoplasm of breast (principal); R92.333 Mammographic heterogeneous density, bilateral breasts; Z78.0 Asymptomatic menopausal state; Z80.3 Family history of malignant neoplasm of breast
CPT/HCPCS: 77063; 77067

== ENCOUNTER → 2024-07-22 | Outpatient (CLI) | payer MEDICARE ==
--- NOTE | 2024-07-22 14:37 | BD ---
EXAMINATION TYPE: Axial Bone Density DATE OF EXAM: 07/22/2024 CLINICAL HISTORY: 69 years old Female. ICD-10 CODE: Z78.0 MENOPAUSAL , Additional History: Height: 61.2 in Weight: 180 lbs FRAX RISK QUESTIONS: History of Fracture in Adulthood: rt hip age 66 Secondary Osteoporosis: 3. Menopause before 45: age 33 RISK FACTORS HISTORY OF: Hip Fracture (Right): age 66 Surgery to Hip(right): age 66 EXAM MEASUREMENTS: Bone mineral densitometry was performed using the [employer] System. Bone mineral density as measured about the Lumbar spine is: ----- L1-L4(G/cm2): 1.240 T Score Values are as follows: ----- L1: 0.3 ----- L2: 1.8 ----- L3: 0.7 ----- L4: -0.5 ----- L1-L4: 0.5 Z Score Values are as follows: ----- L1: 1.4 ----- L2: 2.9 ----- L3: 1.8 ----- L4: 0.6 ----- L1-L4: 1.6 Bone mineral density has: Decreased -3.0% since study of: 06/27/2022 Bone mineral density about the L hip (g/cm2): 1.068 T Score values are as follows: -----L Neck: -0.5 -----L Total: 0.5 Z Score values are as follows: -----L Neck: 0.8 -----L Total: 1.6 Bone mineral density has: Decreased -3.4% since study of: 06/27/2022 FRAX%s: The graph provided illustrates a 12.1% chance for a major osteoporotic fx and a 0.9% chance f or the hips probability for fx in 10 years time. IMPRESSION: Normal (Values between +1 and -1 indicate normal bone mass). Consider repeating this study in 5 year s or sooner if there is some new clinical indication. NOTE: T-SCORE=SD OF THE YOUNG ADULT MEAN. [facility], , 07/22/2024 2:35 PM
== END | disposition home or self-care (01) ==
LOC: RADBDWWP 10:43
PROVIDERS: ATTEND Family Medicine
DX: Z13.820 Encounter for screening for osteoporosis (principal); Z78.0 Asymptomatic menopausal state
CPT/HCPCS: 77080

== ENCOUNTER → 2024-09-07 | Outpatient (CLI) | payer MEDICARE ==
--- NOTE | 2024-09-07 11:38 | CT ---
EXAMINATION TYPE: CT chest wo con CT DLP: 417.7 mGycm, Automated exposure control for dose reduction was used. DATE OF EXAM: 09/07/2024 11:10 AM COMPARISON: CT chest 03/19/2024, PET/CT 08/19/2023, CT low-dose lung 07/29/2023, 06/27/2022 CLINICAL INDICATION:Female, 69 years old with history of R91.8 OTHER NONSPECIFIC ABNORMAL FINDING OF LUNG F; PHH, LUNG NODULE TECHNIQUE: Multiple axial images were obtained through the chest without IV contrast. Lack of IV or o ral contrast limits evaluation of solid and hollow organ viscera. . Coronal and sagittal reformats re viewed. FINDINGS: LUNGS/ PLEURA: No pleural effusion, pneumothorax, or focal consolidation. Relatively similar left upp er lobe 7 mm groundglass nodular opacity (series 4, image 27). Stable left upper lobe 1.5 cm groundgl ass nodular opacity (series 4, image 22). Few additional stable nodular groundglass opacities within the superior segment of the right lower lobe. No new suspicious pulmonary nodules or masses. AIRWAY: Patent and unremarkable.. HEART: Size within normal limits.Mitral annulus calcifications.. No pericardial effusion. Moderate co ronary artery calcifications present. MEDIASTINUM: No gross evidence of adenopathy. VASCULATURE: No aortic aneurysm. Mild atherosclerotic calcification of the aorta and its branches. MUSCULOSKELETAL: Subacute appearing nondisplaced fractures of the anterior right second through sixth ribs. Callus formation identified with some fracture line still visible. No segmental fractures. 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 Remote superior endplate compression de formity of the L2 vertebral body with approximately 5% height loss and no retropulsion. Similar grade 1 retrolisthesis of L1 on L2. SOFT TISSUES/LYMPH NODES: Unremarkable. LOWER NECK: Left thyroid lobe is atrophic versus surgically absent. UPPER ABDOMEN: The gallbladder appears surgically absent. Fatty infiltration of the pancreas. IMPRESSION: 1. Stable few groundglass nodular opacities from prior exam. No new or enlarging suspicious pulmonary nodules or masses. Stability from at least 2022 suggests benign nodules. 2. Healing subacute right-sided 2-6 anterior rib fractures. [facility], , 09/07/2024 11:36 AM
== END | disposition home or self-care (01) ==
LOC: RADCTMAIN 10:49
PROVIDERS: ATTEND Family Medicine
DX: S22.41XD Multiple fractures of ribs, right side, subsequent encounter for fracture with routine healing (principal); R91.8 Other nonspecific abnormal finding of lung field
CPT/HCPCS: 71250